=== PATIENT | male | born 1990 | race Hispanic/Latino ===

== ENCOUNTER → 2023-03-17 | Outpatient (CLI) | payer OTHER ==
[~2023-03-17] MED LIST: GADOTERATE MEGLUMINE 5 MMOL/10 ML VIAL IV ONE; IOHEXOL 180 MG/ML 20 ML VIAL ONE
== END | disposition home or self-care (01) ==
LOC: RAH 07:44
PROVIDERS: ATTEND Family Medicine
DX: S43.431A Superior glenoid labrum lesion of right shoulder, initial encounter (principal); X58.XXXA Exposure to other specified factors, initial encounter; Y93.89 Activity, other specified; Y92.89 Other specified places as the place of occurrence of the external cause; Y99.8 Other external cause status
CPT/HCPCS: 73223; 77002; 23350; Q9965; A9575